=== PATIENT | female | born 1940 | race Caucasian/White ===

== ENCOUNTER 2017-01-15 13:14 | Outpatient (CLI) | payer MEDICARE, BC ==
[2016-01-18 07:48] VITALS: O2SAT 94
== END 2017-01-15 13:15 | disposition home or self-care (01) | DRG 561 ==
LOC: CONVCARE 13:14
PROVIDERS: ATTEND Orthopaedic Surgery
DX: Z47.1 Aftercare following joint replacement surgery (principal); Z96.653 Presence of artificial knee joint, bilateral
CPT/HCPCS: 73562

== ENCOUNTER 2017-03-26 16:28 | Outpatient (CLI) | payer MEDICARE, BC ==
[2016-01-18 07:48] VITALS: O2SAT 94
[2017-03-26 16:42] LABS: BASOPHILS % (AUTO) 2 % (0-3); EOSINOPHILS % (AUTO) 2 % (0-9); HEMATOCRIT 38 % (35-47); MEAN CORPUSCULAR HGB CONC 35.3 gm/dl (32.0-36.0); MEAN CORPUSCULAR VOLUME 89 fL (81-99); MONOCYTES % (AUTO) 17.1 % (0-12); NEUTROPHILS % (AUTO) 61.1 % (37-80)
== END 2017-03-26 16:29 | disposition home or self-care (01) | DRG 561 ==
LOC: CONVCARE 16:28
PROVIDERS: ATTEND Orthopaedic Surgery
DX: Z47.1 Aftercare following joint replacement surgery (principal); M25.561 Pain in right knee; Z96.653 Presence of artificial knee joint, bilateral; M25.562 Pain in left knee
CPT/HCPCS: 36415; 85025; 85651

== ENCOUNTER 2018-02-12 09:25 | Outpatient (CLI) | payer MEDICARE, BC ==
[2016-01-18 07:48] VITALS: O2SAT 94
== END 2018-02-12 09:26 | disposition home or self-care (01) | DRG 556 ==
LOC: CONVCARE 09:25
PROVIDERS: ATTEND Orthopaedic Surgery
DX: M25.562 Pain in left knee (principal); M25.561 Pain in right knee; Z96.653 Presence of artificial knee joint, bilateral
CPT/HCPCS: 72120

== ENCOUNTER 2018-03-03 12:45 | Day surgery (SDC) | payer MEDICARE, BC ==
[2018-03-03] MEDS ORDERED: DIAZEPAM 5 MG TAB ONE (13:03)
[2018-03-03] MEDS ORDERED: BUPIVACAINE HCL 0.5% MPF 10 ML SOL ONE (13:21)
[2018-03-03] MEDS ORDERED: DEXAMETHASONE SOD PHOS PF 10 MG/ML SOL IJ ONE (13:21)
[2018-03-03 13:38] VITALS: RESP 16
[2018-03-03 14:33] VITALS: BP 158/88; PULSE 78; TEMP 97; O2SAT 95
== END 2018-03-03 14:50 | disposition home or self-care (01) | DRG 552 ==
LOC: SURG 12:45
PROVIDERS: ATTEND Nurse Anesthetist, Certified Registered
DX: M48.061 Spinal stenosis, lumbar region without neurogenic claudication (principal)
CPT/HCPCS: A9270-GY; J1100

== ENCOUNTER 2018-04-21 09:09 | Day surgery (SDC) | payer MEDICARE, BC ==
[2018-04-21] MEDS ORDERED: BUPIVACAINE HCL 0.25% MPF 30 ML SOL INFIL ONE (09:54)
[2018-04-21] MEDS ORDERED: DEXAMETHASONE SOD PHOS PF 10 MG/ML SOL IJ ONE ×2 (10:20→10:25)
[2018-04-21 10:31] VITALS: O2SAT 94
[2018-04-21 10:41] VITALS: BP 130/80; PULSE 70; RESP 16; TEMP 99.1
== END 2018-04-21 11:05 | disposition home or self-care (01) | DRG 552 ==
LOC: SURG 09:09
PROVIDERS: ATTEND Nurse Anesthetist, Certified Registered
DX: M48.07 Spinal stenosis, lumbosacral region (principal); M48.062 Spinal stenosis, lumbar region with neurogenic claudication
CPT/HCPCS: J1100

== ENCOUNTER 2018-06-17 09:09 | Day surgery (SDC) | payer MEDICARE, BC ==
[2018-06-17] MEDS ORDERED: BUPIVACAINE HCL 0.25% MPF 30 ML SOL INFIL ONE (09:41)
[2018-06-17] MEDS: DEXAMETHASONE SOD PHOS PF 10 MG/ML SOL IJ ONE ×3 (09:50→09:57)
[2018-06-17 10:09] VITALS: BP 149/81; PULSE 82; RESP 18; TEMP 97.6; O2SAT 94
== END 2018-06-17 10:22 | disposition home or self-care (01) | DRG 552 ==
LOC: SURG 09:09
PROVIDERS: ATTEND Nurse Anesthetist, Certified Registered
DX: M48.062 Spinal stenosis, lumbar region with neurogenic claudication (principal)
CPT/HCPCS: J1100

== ENCOUNTER 2018-10-19 12:58 | Day surgery (SDC) | payer MEDICARE, BC ==
[2018-10-19] MEDS ORDERED: BUPIVACAINE HCL 0.5% MPF 10 ML SOL ONE (13:33)
[2018-10-19] MEDS ORDERED: LIDOCAINE HCL 1% MPF 30 SOL ONE (13:33)
[2018-10-19 14:24] VITALS: RESP 20
[2018-10-19 14:48] VITALS: BP 169/90; PULSE 74; O2SAT 98
== END 2018-10-19 14:42 | disposition home or self-care (01) | DRG 556 ==
LOC: SURG 12:58
PROVIDERS: ATTEND Nurse Anesthetist, Certified Registered
DX: M25.561 Pain in right knee (principal); M17.11 Unilateral primary osteoarthritis, right knee
CPT/HCPCS: J2001

== ENCOUNTER 2018-11-17 12:43 | Day surgery (SDC) | payer MEDICARE, BC ==
[2018-11-17] MEDS ORDERED: MIDAZOLAM 2 MG/2 ML SOL ONE (13:30)
[2018-11-17] MEDS ORDERED: FENTANYL 100MCG/2ML SOL ONE (13:30)
[2018-11-17] MEDS ORDERED: TRIAMCINOLONE ACETONIDE 40 MG/ML SUS ONE (13:32)
[2018-11-17] MEDS ORDERED: LIDOCAINE HCL 2% MPF 10 ML SOL ONE (13:32)
[2018-11-17] MEDS ORDERED: BUPIVACAINE HCL 0.25% MPF 30 ML SOL INFIL ONE (13:33)
[2018-11-17] MEDS ORDERED: LIDOCAINE HCL 1% MPF 30 SOL ONE (13:33)
[2018-11-17] MEDS ORDERED: SODIUM CHLORIDE IV ONE (13:54)
[2018-11-17 14:26] VITALS: RESP 16
[2018-11-17 14:55] VITALS: BP 162/77; PULSE 86; TEMP 98.9; O2SAT 93
== END 2018-11-17 15:06 | disposition home or self-care (01) | DRG 556 ==
LOC: SURG 12:43
PROVIDERS: ATTEND Nurse Anesthetist, Certified Registered
DX: M25.561 Pain in right knee (principal)
CPT/HCPCS: J2250; J3010; J2001; J3300

== ENCOUNTER 2019-02-01 09:14 | Day surgery (SDC) | payer MEDICARE, BC ==
[2019-02-01 09:41] VITALS: PULSE 76; RESP 16; TEMP 98.1; O2SAT 94
[2019-02-01] MEDS ORDERED: TRIAMCINOLONE ACETONIDE 40 MG/ML SUS ONE (09:45)
[2019-02-01] MEDS ORDERED: BUPIVACAINE HCL 0.25% MPF 30 ML SOL INFIL ONE (09:45)
[2019-02-01 09:58] VITALS: BP 162/100
== END 2019-02-01 10:05 | disposition home or self-care (01) | DRG 566 ==
LOC: SURG 09:14
PROVIDERS: ATTEND Nurse Anesthetist, Certified Registered
DX: D36.10 Benign neoplasm of peripheral nerves and autonomic nervous system, unspecified (principal)
CPT/HCPCS: J3300